=== PATIENT | female | born 1995 | race Caucasian/White ===

== ENCOUNTER 2019-12-07 14:35 | Inpatient (IN) | payer SELFPAY ==
[2019-12-07] MEDS: Lactated Ringers 500 ML 999 ML IV (16:05)
[2019-12-07 16:30] VITALS: BMI 29.2
[2019-12-07] MEDS: Lactated Ringers 1,000 ML 50 ML IV (16:39)
[2019-12-07 16:40] LABS: Absolute Lymphocyte Count 3.17 X10^3/uL (0.83-4.51); Absolute Neutrophil Count 6.9 X10^3/uL (2.0-7.7); Basophil# 0.04 X10^3/uL; Basophil% 0.4 % (0-1); Eosinophils% 0.9 % (0-5); Hematocrit 37.3 % (37-47); Hemoglobin 12.7 g/dL (12.0-15.0); Lymphocyte # 3.17 X10^3/ul (4.0); Lymphocyte % 28.8 % (19-41); Mean Corpuscular Hgb 30.1 pg (27.0-32.0); Mean Corpuscular Volume 88.4 fL (81-99); Mean Platelet Vol. 10.2 fl (6.2-12.0); Monocyte# 0.68 X10^3/uL; Monocyte% 6.2 % (0-10); NRBC Flagged by Analyzer 0 % (0-5); Neutrophil # 6.92 X10^3/uL (2.7-7.7); Neutrophil % 62.8 % (47-70); Platelet Count 221 K/mm3 (150-450); RBC Distribution Width CV 13.3 % (11.6-14.6); RBC Distribution Width SD 43.2 fl (35.1-43.9); Red Blood Count 4.22 M/mm3 (4.2-5.4)
[2019-12-07 17:13] LABS: Rubella IgG < 0.2 IU/mL
[2019-12-07 19:13] LABS: Group B Strep DNA By PCR Negative (Negative); Internal Control PASS; Probe Check PASS; Specimen Processing Control PASS
[2019-12-07] MEDS: Oxytocin 30 units/NS 500 ml 30 UNITS/500 ML IV.SOLN IV (19:17)
[2019-12-07] MEDS: Lactated Ringers 1,000 ML 200 ML IV (21:23)
[2019-12-07] MEDS: Amnioinfusion- 0.9% NS 1,000 ML IV.SOLN. INTRA-UTER ×2 (21:31→22:01)
--- NOTE | 2019-12-08 00:34 | PCM.HP.OB ---
- Problem List (1) Variable heart rate decelerations, antepartum Status: Acute History Date of Admission: 12/08/19 Final KT: 12/09/19 Gestational age: 39 Weeks and 6 Days History of this : This is a 24 year-old, , at 39 weeks gestational age presents secondary to decreased movement and heart rate decelerations heard by her senior it architect, Dimple iglesias. she denies any vb lof, has had some contractions. first visit was at 24 weeks and fundal height-consistent with LMP and appropriate for growth throughout the . Allergies No Known Allergies Allergy (Verified 12/07/19 16:28) Smoking Status: Never smoker Alcohol: None Number of Fetus(es): 1 NST - FHR Rate Baby A Baseline: 140 Variability:: Moderate Accelerations:: 15 x 15 Decelerations:: Variable NST Reactive:: Yes FHR Category:: Category II - overall reassuring Uterine Activity:: q 3-5 History Past Pregnancies: Past Pregnancies 3 previous term uncomplicated home births per patient Labs: Mom's Microbiology 12/07/19 Unknown Genital vaginal Group B Streptococcus Culture - Pending Mom's Problem List Problem Status Onset Code Variable heart rate decelerations, antepartum Acute O36.8390 Mom's Labs & Results 12/07/19 12/07/19 12/07/19 15:06 15:06 15:06 WBC 11.0 RBC 4.22 Hgb 12.7 Hct 37.3 MCV 88.4 MCH 30.1 MCHC 34.0 RDW Std Deviation 43.2 RDW Coeff of Rosa 13.3 Plt Count 221 MPV 10.2 Immature Gran % (Auto) 0.900 Neut % (Auto) 62.8 Lymph % (Auto) 28.8 [place] % (Auto) 6.2 Eos % (Auto) 0.9 Baso % (Auto) 0.4 Absolute Neuts (auto) 6.9 Absolute Lymphs (auto) 3.17 Nucleated RBC % 0 Rubella IgG Antibody < 0.2 Group B Strep DNA Specimen Comment Blood Type B POSITIVE Antibody Screen NEGATIVE 12/07/19 15:08 WBC RBC Hgb Hct MCV MCH MCHC RDW Std Deviation RDW Coeff of Rosa Plt Count MPV Immature Gran % (Auto) Neut % (Auto) Lymph % (Auto) [place] % (Auto) Eos % (Auto) Baso % (Auto) Absolute Neuts (auto) Absolute Lymphs (auto) Nucleated RBC % Rubella IgG Antibody Group B Strep DNA Negative Specimen Comment Not Reportable Blood Type Antibody Screen Course Did the patient receive Yes care? Labs Blood Type: B RH: POSITIVE Rubella status Non-immune HIV/AIDS Unknown Group B Strep: Negative Other Lab Procedures/Results/ Rubella collected on admission Comments: Pt declined other labs Current Obstetrical History Gestational Diabetes No Incompetent Cervix No Infertility No IUGR No Macrosomia No Hypertension/Pre-eclampsia No Placenta Previa/Abruption No PTL/PROM No Uterine anomaly No Oligohydramnios No Polyhydramnios No Multiple gestation No Past Medical History Asthma No Diabetes No Hypertension No Heart disease No Mitral valve prolapse No Neurologic/Seizure disorder/ No Migraines Kidney disease No Liver disease No Varicosities No Clotting disorders/Hx of DVT No Thyroid Dysfunction No Other medical diseases No Psychiatric disorders No Major trauma No Abnormal PAP smear No Sleep apnea No Mammogram in the last 2 years No Social History Marital Status: Alleged father Wilmer Hx Smoking No Smoking Status Never smoker Expected Infant Delivery Method: Spontaneous Vaginal Review of Systems Constitutional: Denies: Fever, Malaise Eyes: Denies: Blurred vision, Vision Change HEENT: Denies: Head Aches, Visual Changes Cardiovascular: Denies: Chest Pain, Palpitations Respiratory: Denies: Cough, Shortness of Breath, Wheezing Gastrointestinal: Denies: Abdominal Pain, Diarrhea, Nausea, Vomiting Genitourinary: Denies: Dysuria, Hematuria Musculoskeletal: Denies: Joint Pain, Muscle pain Skin: Denies: Lesions, Rash Neurological: Denies: Blurred vision, Focal weakness, Headaches Psychiatric: Denies: Anxiety, Depression Endocrine: Denies: Heat/ Cold Intolerance Hematologic/ Lymphatic: Denies: Easy Bruising, Easy Bleeding Physical Exam General: Alert, Cooperative, No apparent distress HEENT: Atraumatic, Normocephalic. Negative for: Thyromegaly, Lymphadenopathy Cardiovascular: Regular rate Lungs: Normal air movement Abdomen: Soft, Non Tender, Gravid Neurological: Deep Tendon Reflexes 2+/4 and Symmetrical, Neuro grossly intact. 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 Negative for: Vulvar lesions Estimated gestational size: Appropriate for gestational size Presentation: Cephalic Cervix Dilation (cm): 3 Station: -2 Effacement (%): 70 Assessment/Plan All Active Problems Variable heart rate decelerations, antepartum (Acute) This is a 24 year-old, , at 39 weeks gestational age presents secondary to decreased movement and heart rate variables Patient presents IOL, plan management for , arom clear with internals placed, amnioinfusion needed for variables Pain management: Plans epidural. GBS low risk. Will start if rupture membranes for over 18 hours. Management of any complications: Decreased movement and heart rate variable decelerations I have reviewed the [facility] and made any clinically relevant updates.
[2019-12-08] MEDS: Oxytocin 30 units/NS 500 ml 30 UNITS/500 ML IV.SOLN 334 UNITS IV (01:25)
--- NOTE | 2019-12-08 01:31 | PCM.OPRPT ---
Problem List (1) Variable heart rate decelerations, antepartum Status: Acute Vaginal Delivery Maternal Presentation: Active Labor 24 yo iol decels decreased movement Method of Induction: Pitocin Amniotic Membrane Rupture Type: Artificial Amniotic Fluid Description: Clear Final KT: 12/09/19 Gestational age: 39 Weeks and 6 Days Date of Procedure: 12/08/19 Pre-Operative Diagnosis: Induction of labor heart rate decelerations Post-Operative Diagnosis: Same Surgery/ Procedure Performed: Spontaneous Vaginal Delivery Type of Anesthesia: Epidural Description of Procedure: Patient began pushing and delivered the head in the GIFTY presentation. The head was delivered atraumatically. The anterior and posterior shoulders delivered without complication followed by the rest of the and the infant was placed on the maternal abdomen. Delayed cord clamping was employed for approximately 60 seconds. Cord was clamped and cut and gentle traction was applied to the cord and the placenta delivered spontaneously immediately following it was noted to be intact with three-vessel cord. The perineum and vagina were inspected and noted to have no laceration. EBL was 100 cc. Patient and tolerated delivery well. Presentation: GIFTY Placental Delivery Description: Spontaneous Placenta Disposition: [facility] Cord Vessel Description: 3 Vessels Cord Entanglement: None Estimated Blood Loss: 100 Infant A gender: Male Episiotomy Description: None Laceration: None Medications given after delivery: IV Pitocin Complications: None Multi Select Codes - Urinary/Genital Urinary/Genital CPT Codes: 45028 Vaginal Delivery Only
--- NOTE | 2019-12-08 01:45 | DCINST_ITS ---
Discharge Diet: No Restrictions Discharge Activity: Return to Normal Activity, May not drive while taking narcotic pain medications., May Shower May resume sexual activity in: 4-6 weeks Call your doctor if your incision/area has: Continuous Slow Oozing, Sudden Increased Bleeding, Increased Pain/ Swelling, Increased Redness, Foul Smelling Discharge Additional Instructions: If you experience any of the following, contact your healthcare provider. * Bleeding that soaks a pad every hour for 2 hours * Fever 100.4 or higher * Unrelieved incision or abdominal pain * Swelling, redness, discharge or bleeding from your incision or episiotomy site * Your incision begins to separate * Problems urinating (including inability to urinate or burning while urinating). * Visual changes * Severe headache * Flu-like symptoms * Pain or redness in one of both of your breasts * Pain, warmth, tenderness or swelling in your legs, especially the calf area * Frequent nausea and vomiting * Symptoms of depression or anxiety If you experience any of the following, call 911 or go to the nearest Emergency Room. * Chest pain * Problems breathing * Seizure activity * Partial or complete paralysis of a body part, slurred speech, weakness or drooping of the face, or a sudden inability to walk or hold your balance Allergies/Adverse Reactions: Allergies No Known Allergies Allergy (Verified 12/07/19 16:28) Please Follow Up With: Gayathri Flores MD - [phone] When: Call to make an appointment with your doctor in 6 weeks. If you had elevated Blood pressure or 4th degree laceration you will need to be seen in 2 weeks. Test Results: Test results from this visit will be discussed in further detail at your follow- up appointment, if applicable.
--- NOTE | 2019-12-08 01:45 | PCM.DCVAG ---
Discharge Diet: No Restrictions Discharge Activity: Return to Normal Activity, May not drive while taking narcotic pain medications., May Shower May resume sexual activity in: 4-6 weeks Call your doctor if your incision/area has: Continuous Slow Oozing, Sudden Increased Bleeding, Increased Pain/ Swelling, Increased Redness, Foul Smelling Discharge Additional Instructions: If you experience any of the following, contact your healthcare provider. Bleeding that soaks a pad every hour for 2 hours Fever 100.4 or higher Unrelieved incision or abdominal pain Swelling, redness, discharge or bleeding from your incision or episiotomy site Your incision begins to separate Problems urinating (including inability to urinate or burning while urinating). Visual changes Severe headache Flu-like symptoms Pain or redness in one of both of your breasts Pain, warmth, tenderness or swelling in your legs, especially the calf area Frequent nausea and vomiting Symptoms of depression or anxiety If you experience any of the following, call 911 or go to the nearest Emergency Room. Chest pain Problems breathing Seizure activity Partial or complete paralysis of a body part, slurred speech, weakness or drooping of the face, or a sudden inability to walk or hold your balance Allergies/Adverse Reactions: Allergies No Known Allergies Allergy (Verified 12/07/19 16:28) Please Follow Up With: Gayathri Flores MD - [phone] When: Call to make an appointment with your doctor in 6 weeks. If you had elevated Blood pressure or 4th degree laceration you will need to be seen in 2 weeks. Test Results: Test results from this visit will be discussed in further detail at your follow-up appointment, if applicable.
[2019-12-08 03:39] VITALS: BP 126/71; PULSE 85; RESP 18; TEMP 36.7
[2019-12-08] MEDS: 0.9% Saline Lock 10 ML Syringe IV (03:56)
--- NOTE | 2019-12-08 05:08 | NURSING ---
0340-pt declined wanting to receive MMR (is nonimmune and would qualify to receive this), therefore not ordered.
[2019-12-08 07:51] VITALS: BP 124/83; PULSE 62; RESP 16; TEMP 36.9; O2SAT 97
[2019-12-08 12:26] VITALS: BP 131/67; PULSE 103
[2019-12-08 12:30] VITALS: BP 131/67; PULSE 103; RESP 18; TEMP 36.6; O2SAT 98
--- NOTE | 2019-12-08 14:04 | NURSING ---
1355-pt to w/c, infant placed on lap and transported to private car in stable condition.
== END 2019-12-08 13:55 | disposition home or self-care (01) | DRG 807 ==
PROVIDERS: Admitting Provider Obstetrics & Gynecology; Referring Provider Obstetrics & Gynecology; Visit Provider Obstetrics & Gynecology
DX: O76 Abnormality in fetal heart rate and rhythm complicating labor and delivery (principal); Z37.0 Single live birth; Z3A.39 39 weeks gestation of pregnancy
CPT/HCPCS: 59025; 59050; 85025; 86762; 86850; 86900; 86901; 87081; 87653; 99218; J7030; J7120; A4216; G0378